=== PATIENT | female | born 1935 | race Caucasian/White ===

== ENCOUNTER → 2016-12-19 | Outpatient (CLI) | payer MEDICARE ==
[~2016-12-19] MED LIST: ASPIRIN ADULT L81 M1 PO; CALCIUM 500 + D1 TAB PO; FIBER CHOICE1 CTB PO; FISH OIL 500MG500 MG PO; LISINOPRIL/HCTZ1 TA3 PO; MEGA BIOTIN10000 MCG PO; METAMUCIL1 PDR PO; MIRALAX17 GM/DOSE PO; Metformin Hydr500 MG PO; OCUVITE1 TA1 PO; PRAVACHOL40 MG PO; THE MEDICINE S400 IU PO; VITAMIN B122000 MCG PO; ZOLPIDEM TART10 MG PO
== END | disposition home or self-care (01) ==
LOC: MAMMO 09:19
DX: N63 Unspecified lump in breast (principal); M25.531 Pain in right wrist

== ENCOUNTER → 2020-01-06 | Day surgery (SDC) | payer MEDICARE ==
[~2020-01-06] VITALS: Ht 165.1 cm; Wt 86.2 kg
[~2020-01-06] MED LIST changes: +ANASTROZOLE1 M1 PO; +ASPIR LOW81 MG PO; +BIOTIN10000 MC1 PO; +CENTRUM ADULTS1 EACH PO; +GLUCOPHAGE1000 MG PO; +LATANOPROST2.5 ML OP; +PEG3350238 GM PO; +PRAVASTATIN SOD80 MG PO; +SYSTANE ULTRA 010 M1 OP; +VITAMIN D10000 UNIT PO; +ZESTORETIC 10-1 EACH PO
[2020-01-06 07:50] VITALS: BP 138/78
[2020-01-06 09:26] VITALS: BP 130/61
[2020-01-06 09:41] VITALS: BP 121/59
[2020-01-06 09:56] VITALS: BP 121/59
== END | disposition home or self-care (01) ==
LOC: SDC 12-31 09:30
DX: H25.811 Combined forms of age-related cataract, right eye (principal); E11.36 Type 2 diabetes mellitus with diabetic cataract; Z79.899 Other long term (current) drug therapy